=== PATIENT | female | born 1980 | race Caucasian/White ===

== ENCOUNTER → 2024-02-16 15:45 | Outpatient (REF) | payer BC, SELFPAY | LOC: WDC 15:45 | PROVIDERS: ATTENDING PHYSICIAN Physician Assistant Medical | DX: Z12.31 Encounter for screening mammogram for malignant neoplasm of breast (principal) | CPT/HCPCS: 77063; 77067 ==

== ENCOUNTER → 2024-03-26 13:44 | Outpatient (REF) | payer BC, SELFPAY | LOC: RAD 13:44 | PROVIDERS: ATTENDING PHYSICIAN Family Medicine Sports Medicine; FAMILY PHYSICIAN Physician Assistant Medical | DX: M25.851 Other specified joint disorders, right hip (principal); M70.61 Trochanteric bursitis, right hip | CPT/HCPCS: 27093; 73525; 73700 ==

== ENCOUNTER → 2024-07-13 11:53 | Outpatient (REF) | payer BC, SELFPAY | LOC: MRI 11:53 | PROVIDERS: ATTENDING PHYSICIAN Nurse Practitioner Family; PRIMARYCARE PHYSICIAN Physician Assistant Medical | DX: D35.2 Benign neoplasm of pituitary gland (principal); N64.3 Galactorrhea not associated with childbirth | CPT/HCPCS: 70553; A9575 ==

== ENCOUNTER → 2024-08-23 15:06 | Outpatient (REF) | payer BC, SELFPAY | LOC: HWRAD 15:06 | PROVIDERS: ATTENDING PHYSICIAN Anesthesiology; FAMILY PHYSICIAN Physician Assistant Medical | DX: M51.361 Other intervertebral disc degeneration, lumbar region with lower extremity pain only (principal) | CPT/HCPCS: 72131 ==

== ENCOUNTER 2025-01-11 06:22 | Day surgery (SDC) | payer BC, SELFPAY | END 2025-01-11 10:31 | disposition home or self-care (01) | LOC: GI 06:22 | PROVIDERS: ATTENDING PHYSICIAN Internal Medicine Gastroenterology | DX: Z12.11 Encounter for screening for malignant neoplasm of colon (principal); Z83.719 Family history of colon polyps, unspecified; K63.5 Polyp of colon | CPT/HCPCS: 45385; 88305 ==

== ENCOUNTER → 2025-02-13 11:09 | Outpatient (REF) | payer BC, SELFPAY | LOC: RAD 11:09 | PROVIDERS: ATTENDING PHYSICIAN Orthopaedic Surgery; FAMILY PHYSICIAN Physician Assistant Medical | DX: M25.851 Other specified joint disorders, right hip (principal) | CPT/HCPCS: 27095; 73525; 73722 ==

== ENCOUNTER → 2025-02-16 09:36 | Outpatient (REF) | payer BC, SELFPAY | LOC: WDC 09:36 | PROVIDERS: ATTENDING PHYSICIAN Physician Assistant Medical | DX: Z12.31 Encounter for screening mammogram for malignant neoplasm of breast (principal) | CPT/HCPCS: 77063; 77067 ==